=== PATIENT | male | born 1990 | race Caucasian/White ===

== ENCOUNTER 2024-12-31 11:17 | Outpatient (REF) | payer MEDICAID, SELFPAY ==
[2024-12-31 14:13] LABS: MANUAL DIFF FLAG NO
[2024-12-31 14:23] LABS: Hematocrit 42.5 % (42.0-52.0); Hemoglobin 14.6 g/dl (14.0-18.0); Imm Gran Abs Auto 0.02 X10*3/uL (0.00-0.03); Imm Gran Pct Auto 0.3 % (0.0-0.4); Lymphocytes Absolute Auto 1.5 X10*3/uL (1.2-4.9); Mean Corpuscular HGB Conc 34.4 g/dl (31.0-36.0); Mean Corpuscular Hemoglobin 28.9 pg (27.0-33.0); Mean Corpuscular Volume 84.2 fL (80.0-98.0); NRBC Abs Auto 0.000 X10*3/uL (0.0-0.012); NRBC Pct Auto 0.0 /100WBC (0.0-0.2); Platelet Count 223 X10*3/uL (160-400); Red Blood Count 5.05 X10*6/uL (4.60-5.80); White Blood Count 6.1 X10*3/uL (4.8-10.8)
[2024-12-31 14:44] LABS: Hemoglobin A1C 139.7088 umol/L; Total Hemoglobin (HGBA1C) 3777.2434 umol/L
[2024-12-31 15:11] LABS: Alanine Aminotransferase 61 U/L (0-40); Albumin Level 4.9 g/dL (3.5-5.0); Alkaline Phosphatase 85 U/L (39-117); Anion Gap 13 (12-20); Aspartate Amino Transferase 34 U/L (5-37); Blood Urea Nitrogen 17 mg/dL (9-16); Calcium 9.7 mg/dL (8.4-10.2); Carbon Dioxide 28 mmol/L (22-29); Chloride 104 mmol/L (96-108); Cholesterol 210 mg/dL (<200); Estimated Glomerular Filt Rate > 60; HDL Cholesterol 48 mg/dL (>40); Potassium 3.7 mmol/L (3.3-5.1); Sodium 141 mmol/L (135-145); Total Protein 7.7 g/dL (6.5-8.0); Triglycerides 138 mg/dL (<150)
[2025-01-01 03:32] LABS: HIV Num 1 0.05 S/CO (0.00-0.99); ~HepC Num1 0.11 S/CO (0.00-0.79); ~Hepatitis C Antibody Nonreactive (Nonreactive)
== END 2024-12-31 11:18 | disposition home or self-care (01) ==
LOC: HO.CHCLDS 11:17
DX: Z11.4 Encounter for screening for human immunodeficiency virus [HIV] (principal); Z11.59 Encounter for screening for other viral diseases; Z76.89 Persons encountering health services in other specified circumstances
CPT/HCPCS: 36415; 80053; 80061; 83036; 84443; 85025; 86803; 87389